=== PATIENT | male | born 1965 | race African-American/Black ===

== ENCOUNTER 2020-01-18 11:24 | Inpatient (IN) | payer MEDICAID, OTHER ==
[~2020-01-18] VITALS: Ht 182.9 cm; Wt 103.0 kg
[~2020-01-18 11:24] MED LIST: clonidine; norvasc; prozac; seroquel; trazadone
[2020-01-18] MEDS ORDERED: LORAZEPAM 1MG TABLET PO ONE (17:30)
[2020-01-19 08:53] LABS: BASOPHILS % 0.9 % (0.0-2.0); HEMATOCRIT. 44.6 % (42.0-52.0); LYMPHOCYTES % 27.6 % (20.0-50.0); MEAN CORPUSCULAR HEMOGLOBIN 29.3 pg (28.0-32.0); MEAN CORPUSCULAR VOLUME 87.3 fL (80.0-94.0); MEAN PLATELET VOLUME 8.6 fl (7.4-10.4); NEUTROPHILS % 62.5 % (40.0-76.0); PLATELET 193 x1000/uL (130-400); RED BLOOD CELL COUNT 5.11 mill/uL (4.7-6.1); RED CELL DISTRIBUTION WIDTH 15.5 % (11.6-14.6)
[2020-01-19 08:54] LABS: CHLORIDE 100 mEq/L (98-107)
[2020-01-19 08:58] LABS: ETHANOL BLOOD < 10 mg/dL
[2020-01-19 08:59] LABS: CLARITY URINE CLOUDY (CLEAR); COLOR URINE YELLOW (YELLOW); KETONES URINE 2+ (NEGATIVE); LEUKOCYTE ESTERASE URINE 3+ (NEGATIVE); NITRITE URINE NEGATIVE (NEGATIVE); OCCULT BLOOD URINE TRACE (NEGATIVE); PROTEIN URINE 2+ (NEGATIVE); SPECIFIC GRAVITY URINE 1.014 (1.005-1.030)
[2020-01-19 09:13] LABS: *AMPHETAMINES SCREEN URINE NEGATIVE (NEGATIVE); *BARBITURATES SCREEN URINE NEGATIVE (NEGATIVE); *BENZODIAZEPINES SCREEN URINE NEGATIVE (NEGATIVE); *COCAINE SCREEN URINE NEGATIVE (NEGATIVE); CANNABINOID URINE SCREEN PRESUMTIVE POSITIVE (NEGATIVE); METHADONE URINE SCREEN NEGATIVE (NEGATIVE); OPIATES URINE SCREEN NEGATIVE (NEGATIVE); PHENCYCLIDINE URINE SCREEN NEGATIVE (NEGATIVE)
[2020-01-19] MEDS ORDERED: LORAZEPAM 1MG TABLET PO ONE (11:30)
[2020-01-19] MEDS ORDERED: OLANZAPINE 5MG TABLET PO SCH (11:30)
[2020-01-19] MEDS: OLANZAPINE 2.5MG TABLET PO SCH ×2 (11:34→17:00)
[2020-01-20] MEDS: OLANZAPINE 2.5MG TABLET PO SCH ×3 (09:00→21:32)
[2020-01-20] MEDS: QUETIAPINE FUMARATE 50MG TABLET PO SCH ×2 (15:15→21:32)
[2020-01-20] MEDS ORDERED: ACETAMINOPHEN 325MG TABLET PO ONE (15:15)
[2020-01-20] MEDS ORDERED: ACETAMINOPHEN 650MG/20.3ML UDC PO ONE (21:30)
[2020-01-21] MEDS: AMLODIPINE 10MG TABLET PO SCH (10:09)
[2020-01-21] MEDS: QUETIAPINE FUMARATE 50MG TABLET PO SCH (10:09)
[2020-01-21] MEDS ORDERED: ACETAMINOPHEN 325MG TABLET PO ONE ×2 (16:45→22:00)
[2020-01-21] MEDS: OLANZAPINE 2.5MG TABLET PO SCH (17:17)
[2020-01-21] MEDS ORDERED: ACETAMINOPHEN 325MG TABLET PO NR (22:15)
[2020-01-22] MEDS: OLANZAPINE 2.5MG TABLET PO SCH ×2 (09:00→17:01)
[2020-01-22] MEDS: QUETIAPINE FUMARATE 50MG TABLET PO SCH (09:00)
[2020-01-22] MEDS: AMLODIPINE 10MG TABLET PO SCH (09:00)
[2020-01-22] MEDS ORDERED: NICOTINE 7MG PATCH TD ONE (11:30)
[2020-01-22] MEDS: ZOLPIDEM TARTRATE 5MG TABLET PO PRN (23:42)
[2020-01-23] MEDS: OLANZAPINE 2.5MG TABLET PO SCH ×2 (08:46→17:00)
[2020-01-23] MEDS: QUETIAPINE FUMARATE 50MG TABLET PO SCH (08:46)
[2020-01-23] MEDS: AMLODIPINE 10MG TABLET PO SCH (08:51)
[2020-01-23] MEDS ORDERED: LORAZEPAM 1MG TABLET PO ONE (14:30)
[2020-01-24] MEDS: ZOLPIDEM TARTRATE 5MG TABLET PO PRN (03:12)
[2020-01-24 08:40] LABS: CHLORIDE 103 mEq/L (98-107)
[2020-01-24 08:49] LABS: CREATINE KINASE 87 IU/L (39-308); HEMATOCRIT. 44.8 % (42.0-52.0); HEMOGLOBIN. 14.7 g/dL (14.0-18.0); MEAN CORPUSCULAR HEMOGLOBIN 29.4 pg (28.0-32.0); MEAN CORPUSCULAR VOLUME 89.7 fL (80.0-94.0); MEAN PLATELET VOLUME 9.5 fl (7.4-10.4); PLATELET 160 x1000/uL (130-400)
[2020-01-24 08:53] LABS: D-DIMER 0.45 mg/L FEU (<0.50)
[2020-01-24 09:09] LABS: PLATELET ESTIMATE NORMAL
[2020-01-24] MEDS: QUETIAPINE FUMARATE 50MG TABLET PO SCH (09:55)
[2020-01-24] MEDS: AMLODIPINE 10MG TABLET PO SCH (09:55)
[2020-01-24] MEDS: OLANZAPINE 2.5MG TABLET PO SCH ×2 (09:55→17:10)
[2020-01-24 10:45] LABS: BG BASE EXCESS -0.2 mmol/L (-2.0-2.0); BG CARBOXYHEMOGLOBIN 0.5 % (0.5-1.5); BG DEOXYHEMOGLOBIN 4.6 % (0.0-5.0); BG FRACTION INSPIRED OXYGEN 21; BG METHEMOGLOBIN 0.2 % (0.0-1.5); BG OXYGEN SATURATION 95.4 % (92.0-98.5); BG OXYHEMOGLOBIN 94.7 % (94.0-97.0); BG PCO2 43.2 mmHg (35.0-45.0); BG PH 7.381 (7.350-7.450); BG PO2 77.6 mmHg (75.0-100.0); BG SAMPLE SITE RIGHT RADIAL; BG TOTAL HEMOGLOBIN 14.5 g/dL (12.0-18.0); BG VENT MODE ROOM AIR
[2020-01-24 22:00] VITALS: BP 106/71
[2020-01-24] MEDS ORDERED: QUET100T PO (22:07)
[2020-01-24] MEDS ORDERED: FINA5TAB3 PO (22:07)
[2020-01-25] VITALS (7 sets, daily range): BP systolic 106–153; BP diastolic 65–83
[2020-01-25] MEDS ORDERED: CLONIDINE 0.1MG TABLET PO PRN (03:15)
[2020-01-25] MEDS ORDERED: KETOROLAC 30MG/ML VIAL IV PRN (03:30)
[2020-01-25] MEDS ORDERED: DOCUSATE SODIUM 100MG CAPSULE PO PRN (03:30)
[2020-01-25] MEDS ORDERED: ZOLPIDEM TARTRATE 5MG TABLET PO PRN (03:30)
[2020-01-25] MEDS ORDERED: GUAIFENESIN 200MG/10ML SUGAR FREE UDC PO PRN (03:30)
[2020-01-25] MEDS ORDERED: IPRATROPIUM/ALBUTEROL 0.5-3(2.5)MG/3ML NEB ORI PRN (03:30)
[2020-01-25] MEDS ORDERED: HALOPERIDOL LACTATE 5MG/ML VIAL IM PRN (03:30)
[2020-01-25] MEDS ORDERED: NITROGLYCERIN 0.4MG TABLET SL SL PRN (03:30)
[2020-01-25] MEDS ORDERED: MAGNESIUM/ALUMINUM HYDROXIDE/SIMETHICONE 30ML UDC PO PRN (03:30)
[2020-01-25] MEDS ORDERED: ACETAMINOPHEN 325MG TABLET PO PRN ×2 (03:30)
[2020-01-25] MEDS ORDERED: LORAZEPAM 2MG/ML CPJ IV PRN (03:30)
[2020-01-25] MEDS ORDERED: NA PHOS,M-B/NA PHOS,DI-BA ENEMA 118ML PR PRN (03:30)
[2020-01-25] MEDS ORDERED: ONDANSETRON HCL 4MG/2ML INJ IV PRN (03:30)
[2020-01-25] MEDS ORDERED: AMIKACIN 500MG in SODIUM CHLORIDE 0.9% 100ML IV SCH (06:00)
[2020-01-25] MEDS ORDERED: ZINC SULFATE 220 MG ( 50 ) CAPSULE PO SCH (09:00)
[2020-01-25] MEDS ORDERED: ASCORBIC ACID 500 MG TABLET PO SCH (09:00)
[2020-01-25] MEDS ORDERED: QUETIAPINE FUMARATE 50MG TABLET PO SCH (09:00)
[2020-01-25] MEDS ORDERED: FAMOTIDINE 20MG TABLET PO SCH (09:00)
[2020-01-25] MEDS ORDERED: OLANZAPINE 10MG TABLET PO SCH (09:00)
[2020-01-25] MEDS ORDERED: AMLODIPINE 10MG TABLET PO SCH (09:00)
[2020-01-25] MEDS ORDERED: ENOXAPARIN 30MG/0.3ML SYR SUBCUT SCH (09:00)
[2020-01-25] MEDS ORDERED: SULF1TAB48 MT (12:45)
[2020-01-25] MEDS ORDERED: CEFAZOLIN 1000MG PREMIX 50 ML IV SCH (14:00)
== END 2020-01-25 17:48 | disposition home or self-care (01) | DRG 137 ==
LOC: ER 11:24 → 7WST 01-19 08:58 → ENRESERV 01-24 20:07
PROVIDERS: ADMIT Internal Medicine; ATTEND Internal Medicine
DX: U07.1 COVID-19 (principal); N47.1 Phimosis; J45.909 Unspecified asthma, uncomplicated; I10 Essential (primary) hypertension; L03.213 Periorbital cellulitis; R45.851 Suicidal ideations; B95.8 Unspecified staphylococcus as the cause of diseases classified elsewhere; E44.1 Mild protein-calorie malnutrition; E87.1 Hypo-osmolality and hyponatremia; F12.10 Cannabis abuse, uncomplicated; F17.210 Nicotine dependence, cigarettes, uncomplicated; F29 Unspecified psychosis not due to a substance or known physiological condition; N39.0 Urinary tract infection, site not specified; Z88.8 Allergy status to other drugs, medicaments and biological substances; Z79.899 Other long term (current) drug therapy; Z59.0 Homelessness; Z68.30 Body mass index [BMI] 30.0-30.9, adult
CPT/HCPCS: 36415; 36600; 71045; 80053; 82375; 82550; 82728; 82805; 83605; 83615; 84145; 84484; 85025; 85379; 85384; 86140; 93005; 93970; 99285; J0278; J0690; J1650; J7050; U0003-CS

== ENCOUNTER 2021-10-05 21:16 | Emergency (ER) | payer MEDICAID, OTHER ==
[~2021-10-05] VITALS: Ht 177.8 cm; Wt 115.0 kg
[~2021-10-05 21:16] MED LIST changes: +FINA5TAB3 PO; +QUET100T PO; +SULF1TAB48 MT; -clonidine; -norvasc; -prozac; -seroquel; -trazadone
[2021-10-05] MEDS ORDERED: ALBUTEROL (0.083%) 2.5MG/3ML NEB HHN STA (22:01)
[2021-10-05] MEDS ORDERED: PREDNISONE 20MG TABLET PO STA (22:01)
[2021-10-05] MEDS ORDERED: IPRATROPIUM BROMIDE (0.02%) 0.5MG/2.5ML NEB HHN STA (22:01)
[2021-10-05 22:57] LABS: BASOPHILS % 1.3 % (0.0-2.0); EOSINOPHILS % 4.3 % (0.0-5.0); HEMATOCRIT. 40.7 % (42.0-52.0); HEMOGLOBIN. 13.6 g/dL (14.0-18.0); LYMPHOCYTES % 70.3 % (20.0-50.0); MEAN CORPUSCULAR HEMOGLOBIN 28.2 pg (28.0-32.0); MEAN CORPUSCULAR VOLUME 84.2 fL (80.0-94.0); MONOCYTES % 7.7 % (2.0-8.0); NEUTROPHILS % 16.4 % (40.0-76.0); PLATELET 313 x1000/uL (130-400); RED BLOOD CELL COUNT 4.84 mill/uL (4.7-6.1); RED CELL DISTRIBUTION WIDTH 17.5 % (11.6-14.6)
[2021-10-05 22:58] LABS: CHLORIDE 103 mEq/L (98-107)
[2021-10-05 23:19] LABS: ETHANOL BLOOD 384 mg/dL
[2021-10-06] MEDS ORDERED: SODIUM CHLORIDE 0.9% 1,000 ML IV ONE (01:00)
[2021-10-06] MEDS ORDERED: CHLORDIAZEPOXIDE 25MG CAPSULE PO ONE (10:45)
[2021-10-06] MEDS ORDERED: LORAZEPAM 2MG/ML CPJ IV ONE (10:45)
[2021-10-06] MEDS ORDERED: LACTATED RINGERS 1,000 ML IV SCH ×2 (10:45)
[2021-10-06] MEDS: FLUOXETINE HCL 10 MG CAPSULE PO SCH (12:37)
[2021-10-06] MEDS: BUSPIRONE HCL 5MG TABLET PO SCH ×2 (15:06→21:00)
[2021-10-06] MEDS ORDERED: ACETAMINOPHEN 325MG TABLET PO ONE (19:30)
[2021-10-06] MEDS: QUETIAPINE FUMARATE 50MG TABLET PO SCH (22:02)
[2021-10-06] MEDS: ENALAPRIL 5MG TABLET PO SCH (22:03)
[2021-10-06 23:42] LABS: CLARITY URINE CLEAR (CLEAR); COLOR URINE YELLOW (YELLOW); KETONES URINE TRACE (NEGATIVE); LEUKOCYTE ESTERASE URINE NEGATIVE (NEGATIVE); NITRITE URINE NEGATIVE (NEGATIVE); OCCULT BLOOD URINE NEGATIVE (NEGATIVE); PROTEIN URINE 1+ (NEGATIVE); SPECIFIC GRAVITY URINE 1.018 (1.005-1.030)
[2021-10-06 23:50] LABS: *BARBITURATES SCREEN URINE NEGATIVE (NEGATIVE)
[2021-10-06 23:51] LABS: *AMPHETAMINES SCREEN URINE NEGATIVE (NEGATIVE); *BENZODIAZEPINES SCREEN URINE NEGATIVE (NEGATIVE); *COCAINE SCREEN URINE NEGATIVE (NEGATIVE); METHADONE URINE SCREEN NEGATIVE (NEGATIVE); OPIATES URINE SCREEN NEGATIVE (NEGATIVE); PHENCYCLIDINE URINE SCREEN NEGATIVE (NEGATIVE)
[2021-10-06 23:52] LABS: CANNABINOID URINE SCREEN NEGATIVE (NEGATIVE)
[2021-10-07] MEDS: ENALAPRIL 5MG TABLET PO SCH ×2 (10:42→20:59)
[2021-10-07] MEDS: FLUOXETINE HCL 10 MG CAPSULE PO SCH (10:42)
[2021-10-07] MEDS: QUETIAPINE FUMARATE 50MG TABLET PO SCH (10:42)
[2021-10-07] MEDS ORDERED: LORAZEPAM 2MG/ML CPJ IV PRN (17:15)
[2021-10-07] MEDS ORDERED: KETOROLAC 30MG/ML VIAL IV ONE (17:30)
[2021-10-07] MEDS ORDERED: LORAZEPAM 2MG/ML CPJ IV ONE (17:30)
[2021-10-07] MEDS: CHLORDIAZEPOXIDE 25MG CAPSULE PO SCH (20:58)
[2021-10-07] MEDS: BUSPIRONE HCL 5MG TABLET PO SCH (20:58)
[2021-10-08] MEDS: FLUOXETINE HCL 10 MG CAPSULE PO SCH (09:01)
[2021-10-08] MEDS: CHLORDIAZEPOXIDE 25MG CAPSULE PO SCH (09:01)
[2021-10-08] MEDS: BUSPIRONE HCL 5MG TABLET PO SCH (09:01)
[2021-10-08] MEDS: ENALAPRIL 5MG TABLET PO SCH (09:02)
[2021-10-08 19:44] VITALS: BP 143/88
== END 2021-10-08 20:09 ==
LOC: ER 21:16
DX: R45.851 Suicidal ideations (principal); F12.10 Cannabis abuse, uncomplicated; F17.200 Nicotine dependence, unspecified, uncomplicated; I10 Essential (primary) hypertension; R06.02 Shortness of breath; J45.909 Unspecified asthma, uncomplicated; Z20.822 Contact with and (suspected) exposure to COVID-19
CPT/HCPCS: 36415; 80053; 80305; 80307; 80320; 80329; 81001; 82962; 84703; 85025; 93005; 94640; 96361; 96374; 96375; 96376; 99285; C9803; J1885; J2060; J7512; U0003; U0005; G0480

== ENCOUNTER 2023-10-09 07:36 | Emergency (ER) | payer OTHER ==
[~2023-10-09] VITALS: Ht 177.8 cm; Wt 115.0 kg
[~2023-10-09 07:36] MED LIST changes: +FINA-37 PO; -FINA5TAB3 PO; -SULF1TAB48 MT
[2023-10-09 07:42] VITALS: O2SAT 100
[2023-10-09 08:06] LABS: BASOPHILS % 1.2 % (0.0-2.0); HEMATOCRIT. 45.8 % (42.0-52.0); HEMOGLOBIN. 15.1 g/dL (14.0-18.0); MEAN CORPUSCULAR HEMOGLOBIN 26.8 pg (28.0-32.0); MEAN CORPUSCULAR HGB CONC 32.9 g/dL (31.0-37.0); MEAN CORPUSCULAR VOLUME 81.3 fL (80.0-94.0); MEAN PLATELET VOLUME 8.5 fl (7.4-10.4); MONOCYTES % 8.7 % (2.0-8.0); NEUTROPHILS % 50.1 % (40.0-76.0); PLATELET 322 x1000/uL (130-400); RED BLOOD CELL COUNT 5.63 mill/uL (4.7-6.1); RED CELL DISTRIBUTION WIDTH 18.6 % (11.6-14.6); WHITE BLOOD COUNT 6.7 x1000/uL (4.5-11.0)
[2023-10-09 08:34] LABS: ALANINE AMINOTRANSFERASE 18 IU/L (10-49); ALBUMIN 4.8 g/dL (3.2-4.8); ASPARTATE AMINOTRANSFERASE 33 IU/L (<34); BILIRUBIN TOTAL 0.3 mg/dL (0.1-1.0); CALCIUM 9.1 mg/dL (8.7-10.4); CARBON DIOXIDE 20 mEq/L (21-32); CHLORIDE 92 mEq/L (98-107); CREATININE 0.7 mg/dL (0.6-1.3); ETHANOL BLOOD 275 mg/dL (<10); GLUCOSE 78 mg/dL (70-105); POTASSIUM 3.9 mEq/L (3.5-5.1); PROTEIN TOTAL 8.9 g/dL (6.0-8.3); SODIUM 126 mEq/L (136-145); UREA NITROGEN BLOOD 7 mg/dL (9-23)
[2023-10-09 11:54] LABS: CLARITY URINE CLEAR (CLEAR); COLOR URINE YELLOW (YELLOW); GLUCOSE URINE NEGATIVE (NEGATIVE); KETONES URINE 2+ (NEGATIVE); LEUKOCYTE ESTERASE URINE NEGATIVE (NEGATIVE); NITRITE URINE NEGATIVE (NEGATIVE); OCCULT BLOOD URINE TRACE (NEGATIVE); PH URINE 5.5 (4.5-8.0); PROTEIN URINE 2+ (NEGATIVE); SPECIFIC GRAVITY URINE 1.015 (1.005-1.030)
[2023-10-09 12:16] LABS: *AMPHETAMINES SCREEN URINE NEGATIVE (NEGATIVE); *BARBITURATES SCREEN URINE NEGATIVE (NEGATIVE); *BENZODIAZEPINES SCREEN URINE PRESUMPTIVE POSITIVE (NEGATIVE); *COCAINE SCREEN URINE NEGATIVE (NEGATIVE); CANNABINOID URINE SCREEN PRESUMPTIVE POSITIVE (NEGATIVE); ECSTASY MDMA SCREEN URINE NEGATIVE (NEGATIVE); METHADONE URINE SCREEN Neg (NEGATIVE); OPIATES URINE SCREEN NEGATIVE (NEGATIVE); PHENCYCLIDINE URINE SCREEN NEGATIVE (NEGATIVE)
[2023-10-09 12:36] LABS: RBC URINE 0-2 /hpf (0-2); SQUAMOUS EPITHELIAL CELL URINE FEW /lpf (RARE/1+); WBC URINE 0-2 /hpf (0-2)
[2023-10-09 12:37] LABS: BACTERIA URINE TRACE
[2023-10-09] MEDS: CHLORDIAZEPOXIDE 25MG CAPSULE PO ONE (14:19)
[2023-10-09 20:15] LABS: PARTIAL THROMBOPLASTIN TIME 32.1 sec (23.4-31.0); PROTHROMBIN TIME 11.4 sec (9.6-11.0)
[2023-10-10] MEDS ORDERED: CHLORDIAZEPOXIDE 25MG CAPSULE PO PRN ×3 (00:15)
[2023-10-10] MEDS ORDERED: LORAZEPAM 1MG TABLET PO PRN ×3 (00:15)
[2023-10-10] MEDS: LORAZEPAM 2MG/ML INJ IM ONE (00:56)
[2023-10-10] MEDS: CHLORDIAZEPOXIDE 25MG CAPSULE PO ONE (01:00)
[2023-10-10] MEDS ORDERED: FOLIC ACID 1MG TABLET PO SCH (09:00)
[2023-10-10] MEDS ORDERED: MULTIVITAMINS,THER W-MINERALS TABLET PO SCH (09:00)
[2023-10-10] MEDS: ACETAMINOPHEN 325MG TABLET PO ONE (15:00)
[2023-10-10 20:18] VITALS: BP 130/88; PULSE 110; RESP 20; TEMP 98.3
[2023-10-12] MEDS ORDERED: THIAMINE HCL 100MG TABLET PO SCH (09:00)
== END 2023-10-10 20:54 ==
LOC: ER 07:36
DX: R45.851 Suicidal ideations (principal); Z20.822 Contact with and (suspected) exposure to COVID-19
CPT/HCPCS: 80053; 80305; 81003; 80307; 80329; 80320 ×2; 85025; 85610; 85730; 36415 ×2; 99285; 87426; 96372; J2060; G0480

== ENCOUNTER 2024-01-07 09:28 | Inpatient (IN) | payer OTHER ==
[~2024-01-07] VITALS: Ht 182.9 cm; Wt 127.6 kg
[~2024-01-07 09:28] MED LIST changes: -FINA-37 PO; +LISI10TA26 PO; +PRAZ1CAP5 PO; -QUET100T PO; +QUET100T34 PO; +QUET300T20 PO
[2024-01-07 10:10] LABS: BASOPHILS % 1.5 % (0.0-2.0); EOSINOPHILS % 0.2 % (0.0-5.0); HEMATOCRIT. 39.9 % (42.0-52.0); HEMOGLOBIN. 13.1 g/dL (14.0-18.0); LYMPHOCYTES % 29.4 % (20.0-50.0); MEAN CORPUSCULAR HEMOGLOBIN 27.7 pg (28.0-32.0); MEAN CORPUSCULAR HGB CONC 32.7 g/dL (31.0-37.0); MEAN CORPUSCULAR VOLUME 84.7 fL (80.0-94.0); MEAN PLATELET VOLUME 8.1 fl (7.4-10.4); MONOCYTES % 4.5 % (2.0-8.0); NEUTROPHILS % 64.4 % (40.0-76.0); PLATELET 303 x1000/uL (130-400); RED BLOOD CELL COUNT 4.71 mill/uL (4.7-6.1); RED CELL DISTRIBUTION WIDTH 18.2 % (11.6-14.6); WHITE BLOOD COUNT 5.6 x1000/uL (4.5-11.0)
[2024-01-07 10:19] LABS: CHLORIDE 98 mEq/L (98-107); POTASSIUM 3.7 mEq/L (3.5-5.1); SODIUM 133 mEq/L (136-145)
[2024-01-07 10:20] LABS: CARBON DIOXIDE 18 mEq/L (21-32)
[2024-01-07 10:21] LABS: CALCIUM 8.7 mg/dL (8.7-10.4)
[2024-01-07] MEDS: METHYLPREDNISOLONE SOD SUCC 125MG/2ML (ACT-O-VIAL) IV STA (10:21)
[2024-01-07] MEDS: MAGNESIUM 2 G PREMIX 50 ML IV STA (10:21)
[2024-01-07 10:25] LABS: CREATININE 0.7 mg/dL (0.6-1.3); GLUCOSE 74 mg/dL (70-105); UREA NITROGEN BLOOD 8 mg/dL (9-23)
[2024-01-07 10:26] LABS: TROPONIN I HIGH SENSITIVITY 4 ng/L (3.0-53)
[2024-01-07] MEDS: IPRATROPIUM BROMIDE (0.02%) 0.5MG/2.5ML NEB HHN STA (11:20)
[2024-01-07] MEDS: ALBUTEROL (0.083%) 2.5MG/3ML NEB HHN STA (11:21)
[2024-01-07] MEDS: LORAZEPAM 2MG/ML INJ IV ONE (12:23)
[2024-01-07] MEDS: CHLORDIAZEPOXIDE 25MG CAPSULE PO ONE (12:28)
[2024-01-08] VITALS (8 sets, daily range): BP systolic 150–166; BP diastolic 76–94; PULSE 81–104; RESP 15–20; TEMP 98–98.8; O2SAT 94–98
[2024-01-08] MEDS ORDERED: IPRATROPIUM/ALBUTEROL 0.5-3(2.5)MG/3ML NEB HHN PRN (05:00)
[2024-01-08] MEDS ORDERED: DOCUSATE SODIUM 100MG CAPSULE PO PRN (05:00)
[2024-01-08] MEDS ORDERED: ACETAMINOPHEN 325MG TABLET PO PRN (05:00)
[2024-01-08] MEDS ORDERED: GUAIFENESIN 200MG/10ML SUGAR FREE UDC PO PRN (05:00)
[2024-01-08] MEDS ORDERED: MAGNESIUM/ALUMINUM HYDROXIDE/SIMETHICONE 30ML UDC PO PRN (05:00)
[2024-01-08] MEDS ORDERED: METHYLPREDNISOLONE SOD SUCC 40MG/ML (ACT-O-VIAL) IV SCH (05:30)
[2024-01-08] MEDS: METHYLPREDNISOLONE SOD SUCC 125MG/2ML (ACT-O-VIAL) IV SCH (06:40)
[2024-01-08] MEDS: PANTOPRAZOLE 40MG DR TABLET PO SCH (06:41)
[2024-01-08] MEDS: IPRATROPIUM/ALBUTEROL 0.5-3(2.5)MG/3ML NEB HHN SCH (07:54)
[2024-01-08] MEDS: FLUOXETINE HCL 20MG CAPSULE PO SCH (08:16)
[2024-01-08] MEDS: THIAMINE HCL 100MG TABLET PO SCH (08:16)
[2024-01-08] MEDS: QUETIAPINE FUMARATE 50MG TABLET PO SCH ×2 (08:16→21:23)
[2024-01-08] MEDS: LISINOPRIL 10MG TABLET PO SCH (08:17)
[2024-01-08] MEDS: ENOXAPARIN 30MG/0.3ML SYR SUBCUT SCH (08:19)
[2024-01-08] MEDS: LORAZEPAM 2MG/ML INJ IV PRN (09:21)
[2024-01-08 10:23] LABS: BG BASE EXCESS -1.2 mmol/L (-2.0-2.0); BG CARBOXYHEMOGLOBIN 0.7 % (0.5-1.5); BG DEOXYHEMOGLOBIN 9.3 % (0.0-5.0); BG FRACTION INSPIRED OXYGEN 21; BG HCO3 ACT 21.3 mmol/L (22.0-26.0); BG METHEMOGLOBIN 0.3 % (0.0-1.5); BG OXYGEN SATURATION 90.6 % (92.0-98.5); BG OXYHEMOGLOBIN 89.7 % (94.0-97.0); BG PCO2 29.5 mmHg (35.0-45.0); BG PH 7.476 (7.350-7.450); BG PO2 58.3 mmHg (75.0-100.0); BG SAMPLE SITE RIGHT RADIAL; BG TOTAL HEMOGLOBIN 13.7 g/dL (12.0-18.0); BG VENT MODE ROOM AIR
[2024-01-08 10:49] LABS: CHLORIDE 96 mEq/L (98-107); POTASSIUM 4.2 mEq/L (3.5-5.1); SODIUM 130 mEq/L (136-145)
[2024-01-08 10:51] LABS: CARBON DIOXIDE 24 mEq/L (21-32)
[2024-01-08 10:52] LABS: CALCIUM 9.8 mg/dL (8.7-10.4)
[2024-01-08 10:56] LABS: CREATININE 0.9 mg/dL (0.6-1.3)
[2024-01-08 10:57] LABS: ALANINE AMINOTRANSFERASE 25 IU/L (10-49); GLUCOSE 152 mg/dL (70-105); UREA NITROGEN BLOOD 12 mg/dL (9-23)
[2024-01-08 10:58] LABS: ASPARTATE AMINOTRANSFERASE 27 IU/L (<34)
[2024-01-08 10:59] LABS: ALBUMIN 4.5 g/dL (3.2-4.8); BILIRUBIN TOTAL 0.5 mg/dL (0.1-1.0); PHOSPHORUS 1.6 mg/dL (2.5-4.9); PROTEIN TOTAL 8.2 g/dL (6.0-8.3)
[2024-01-08] MEDS: FOLIC ACID 1 MG, THIAMINE HCL 100 MG, MVI, ADULT NO.1 10 ML in DEXTROSE 5% WATER 1,000 ML IV NR (11:33)
[2024-01-08] MEDS: KETOROLAC 15MG/ML VIAL IV PRN (16:46)
[2024-01-08] MEDS: PRAZOSIN HCL 1MG CAPSULE PO SCH (21:22)
[2024-01-08] MEDS: ACETAMINOPHEN 325MG TABLET PO PRN (21:23)
[2024-01-08 23:08] LABS: CLARITY URINE CLEAR (CLEAR); COLOR URINE YELLOW (YELLOW); GLUCOSE URINE NEGATIVE (NEGATIVE); KETONES URINE 1+ (NEGATIVE); LEUKOCYTE ESTERASE URINE NEGATIVE (NEGATIVE); NITRITE URINE NEGATIVE (NEGATIVE); OCCULT BLOOD URINE NEGATIVE (NEGATIVE); PH URINE 6.5 (4.5-8.0); PROTEIN URINE NEGATIVE (NEGATIVE); SPECIFIC GRAVITY URINE 1.011 (1.005-1.030)
[2024-01-08 23:19] LABS: *AMPHETAMINES SCREEN URINE NEGATIVE (NEGATIVE); *BARBITURATES SCREEN URINE NEGATIVE (NEGATIVE); *BENZODIAZEPINES SCREEN URINE PRESUMPTIVE POSITIVE (NEGATIVE); *COCAINE SCREEN URINE NEGATIVE (NEGATIVE); CANNABINOID URINE SCREEN NEGATIVE (NEGATIVE); ECSTASY MDMA SCREEN URINE NEGATIVE (NEGATIVE); METHADONE URINE SCREEN NEGATIVE (NEGATIVE); OPIATES URINE SCREEN NEGATIVE (NEGATIVE); PHENCYCLIDINE URINE SCREEN NEGATIVE (NEGATIVE)
[2024-01-09] VITALS (9 sets, daily range): BP systolic 118–177; BP diastolic 81–108; PULSE 78–114; RESP 15–20; TEMP 97.5–98.8; O2SAT 91–98
[2024-01-09] MEDS: CLONIDINE 0.1MG TABLET PO PRN (04:10)
[2024-01-09 17:24] LABS: BASOPHILS % 0.1 % (0.0-2.0); HEMOGLOBIN. 12.4 g/dL (14.0-18.0); LYMPHOCYTES % 8.5 % (20.0-50.0); MEAN CORPUSCULAR HEMOGLOBIN 27.6 pg (28.0-32.0); MEAN CORPUSCULAR HGB CONC 32.6 g/dL (31.0-37.0); MEAN CORPUSCULAR VOLUME 84.9 fL (80.0-94.0); MEAN PLATELET VOLUME 8.6 fl (7.4-10.4); MONOCYTES % 3.4 % (2.0-8.0); PLATELET 223 x1000/uL (130-400); RED BLOOD CELL COUNT 4.47 mill/uL (4.7-6.1); RED CELL DISTRIBUTION WIDTH 17.9 % (11.6-14.6); WHITE BLOOD COUNT 6.5 x1000/uL (4.5-11.0)
[2024-01-09 17:36] LABS: CHLORIDE 99 mEq/L (98-107); POTASSIUM 4.6 mEq/L (3.5-5.1); SODIUM 132 mEq/L (136-145)
[2024-01-09 17:37] LABS: CALCIUM 9.7 mg/dL (8.7-10.4); CARBON DIOXIDE 26 mEq/L (21-32)
[2024-01-09 17:42] LABS: CREATININE 0.8 mg/dL (0.6-1.3); GLUCOSE 133 mg/dL (70-105); TRIGLYCERIDE 69 mg/dL (0-150); UREA NITROGEN BLOOD 20 mg/dL (9-23)
[2024-01-09 17:43] LABS: LDL CHOLESTEROL 92 mg/dL (5-100)
[2024-01-09 17:44] LABS: CHOLESTEROL 229 mg/dL (<200); HDL CHOLESTEROL 101 mg/dL (>55)
[2024-01-09 17:48] LABS: T4 FREE 0.95 ng/dL (0.89-1.76)
[2024-01-09 17:49] LABS: THYROID STIMULATING HORMONE 0.22 uIU/mL (0.55-4.78)
[2024-01-10] VITALS (9 sets, daily range): BP systolic 147–184; BP diastolic 80–110; PULSE 73–97; RESP 16–20; TEMP 97.5–98.4; O2SAT 97–99
[2024-01-10] MEDS: AMLODIPINE 10MG TABLET PO SCH (09:21)
[2024-01-10] MEDS: METOPROLOL TARTRATE 25MG TABLET PO SCH (21:27)
[2024-01-10] MEDS: QUETIAPINE FUMARATE 200MG TABLET PO SCH (21:28)
[2024-01-11] VITALS (9 sets, daily range): BP systolic 155–166; BP diastolic 82–89; PULSE 69–108; RESP 16–26; TEMP 97.8–98.5; O2SAT 96–97
[2024-01-11] MEDS: HYDRALAZINE HCL 100MG TABLET PO SCH (20:13)
[2024-01-12] VITALS (7 sets, daily range): BP systolic 144–175; BP diastolic 79–84; PULSE 68–85; RESP 18–22; TEMP 98–98.6; O2SAT 96–97
[2024-01-12] MEDS: HYDRALAZINE 20MG/ML VIAL IV PRN (17:33)
== END 2024-01-12 18:57 | DRG 133 ==
LOC: ER 09:42 → 3WST 12:23
PROVIDERS: ADMIT Hospitalist; ATTEND Hospitalist
DX: J96.01 Acute respiratory failure with hypoxia (principal); E87.20 Acidosis, unspecified; J44.1 Chronic obstructive pulmonary disease with (acute) exacerbation; E87.1 Hypo-osmolality and hyponatremia; D63.8 Anemia in other chronic diseases classified elsewhere; R45.851 Suicidal ideations; J45.901 Unspecified asthma with (acute) exacerbation; F10.139 Alcohol abuse with withdrawal, unspecified; I10 Essential (primary) hypertension; F10.129 Alcohol abuse with intoxication, unspecified; F32.A Depression, unspecified; F20.9 Schizophrenia, unspecified; F17.210 Nicotine dependence, cigarettes, uncomplicated; R00.0 Tachycardia, unspecified; Z91.148 Patient's other noncompliance with medication regimen for other reason; Z20.822 Contact with and (suspected) exposure to COVID-19; Z88.6 Allergy status to analgesic agent; Z79.899 Other long term (current) drug therapy
CPT/HCPCS: 36415; 36600; 71045; 80048; 80053; 80061; 80305; 80320; 81003; 82375; 82805; 83605; 83735; 83880; 84100; 84439; 84443; 84484; 85025; 85379; 87426; 93005; 94640; 99291; J0360; J1650; J1885; J2060; J2919; J3411; J3475; J3490; J7070; G0480

== ENCOUNTER 2024-08-18 08:49 | Emergency (ER) | payer OTHER ==
[~2024-08-18] VITALS: Ht 172.7 cm; Wt 115.0 kg
[2024-08-18 08:52] VITALS: O2SAT 97
[2024-08-18 09:28] LABS: CLARITY URINE CLEAR (CLEAR); COLOR URINE YELLOW (YELLOW); GLUCOSE URINE NEGATIVE (NEGATIVE); KETONES URINE NEGATIVE (NEGATIVE); LEUKOCYTE ESTERASE URINE NEGATIVE (NEGATIVE); NITRITE URINE NEGATIVE (NEGATIVE); OCCULT BLOOD URINE 1+ (NEGATIVE); PH URINE 6.5 (4.5-8.0); PROTEIN URINE NEGATIVE (NEGATIVE); SPECIFIC GRAVITY URINE 1.002 (1.005-1.030); UROBILINOGEN URINE 0.2 E.U./dL (0.2-1.0)
[2024-08-18 09:58] LABS: *AMPHETAMINES SCREEN URINE NEGATIVE (NEGATIVE); *BARBITURATES SCREEN URINE NEGATIVE (NEGATIVE); *BENZODIAZEPINES SCREEN URINE NEGATIVE (NEGATIVE); *COCAINE SCREEN URINE NEGATIVE (NEGATIVE)
[2024-08-18 09:59] LABS: CANNABINOID URINE SCREEN NEGATIVE (NEGATIVE); ECSTASY MDMA SCREEN URINE NEGATIVE (NEGATIVE); METHADONE URINE SCREEN NEGATIVE (NEGATIVE); OPIATES URINE SCREEN NEGATIVE (NEGATIVE); PHENCYCLIDINE URINE SCREEN NEGATIVE (NEGATIVE)
[2024-08-18 10:16] LABS: SQUAMOUS EPITHELIAL CELL URINE FEW /lpf (RARE/1+)
[2024-08-18 10:17] LABS: BACTERIA URINE TRACE
[2024-08-18 10:18] LABS: RBC URINE NONE SEEN /hpf (0-2); WBC URINE 0-2 /hpf (0-2)
[2024-08-18 10:26] LABS: BASOPHILS % 0.7 % (0.0-2.0); EOSINOPHILS % 0.8 % (0.0-5.0); HEMATOCRIT. 38.4 % (42.0-52.0); HEMOGLOBIN. 12.2 g/dL (14.0-18.0); LYMPHOCYTES % 26.8 % (20.0-50.0); MEAN CORPUSCULAR HEMOGLOBIN 28.4 pg (28.0-32.0); MEAN CORPUSCULAR HGB CONC 31.8 g/dL (31.0-37.0); MEAN CORPUSCULAR VOLUME 89.1 fL (80.0-94.0); MEAN PLATELET VOLUME 9.2 fl (7.4-10.4); MONOCYTES % 14.7 % (2.0-8.0); PLATELET 207 x1000/uL (130-400); RED BLOOD CELL COUNT 4.31 mill/uL (4.7-6.1); RED CELL DISTRIBUTION WIDTH 19.5 % (11.6-14.6); WHITE BLOOD COUNT 4.8 x1000/uL (4.5-11.0)
[2024-08-18 10:53] LABS: POTASSIUM 3.8 mEq/L (3.5-5.1)
[2024-08-18 10:54] LABS: CALCIUM 8.9 mg/dL (8.7-10.4)
[2024-08-18 11:06] LABS: CREATININE 3.3 mg/dL (0.6-1.3)
[2024-08-18] MEDS: ACETAMINOPHEN 325MG TABLET PO ONE (17:22)
[2024-08-18 20:02] VITALS: BP 140/86; PULSE 91; RESP 16; TEMP 36.8; O2SAT 97
== END 2024-08-18 20:27 ==
LOC: ER 08:49
DX: F23 Brief psychotic disorder (principal); F10.129 Alcohol abuse with intoxication, unspecified; J45.909 Unspecified asthma, uncomplicated; I10 Essential (primary) hypertension; Z79.899 Other long term (current) drug therapy; Z20.822 Contact with and (suspected) exposure to COVID-19; Z88.6 Allergy status to analgesic agent; Z88.8 Allergy status to other drugs, medicaments and biological substances; Y90.9 Presence of alcohol in blood, level not specified
CPT/HCPCS: 36415; 80048; 80305; 80320; 81003; 85025; 87426; 99285; G0480